=== PATIENT | female | born 1955 | race Caucasian/White ===

== ENCOUNTER 2024-07-26 10:04 | Emergency (ER) | payer MEDICARE, SELFPAY ==
[2024-07-26 10:19] VITALS: BP 145/84; PULSE 76; RESP 16; TEMP 37.2; O2SAT 96
[2024-07-26 10:20] VITALS: BMI 34.2
--- NOTE | 2024-07-26 10:22 | XR_ITS ---
Examination: CT cervical spine without contrast 2-D sagittal reconstructions 2-D coronal reconstructions 3-D reconstructions. Exam date and time:July 26, 2024 1049 hours INDICATIONS: Patient fell this morning with injury to the neck, neck pain CTDI:vol (mGy) 8.74 DLP: (mGycm) 199 Technique: Multiple 2 mm axial sections of the cervical spine have been obtained. The coronal and sagittal reconstructions have been obtained. 3-D reconstructions have been obtained. Low dose protocols were performed. One or more of the following dose reduction techniques were used; automated exposure control, adjustment of the mA and/or KV according to patient size, use of iterative reconstruction technique. Findings: Axial sections demonstrate intact base of the skull. C1 exhibit satisfactory relationship to the odontoid. No acute cervical vertebral body fracture seen. Alignment posterior spinous processes satisfactory. Impression: No acute cervical fracture.
--- NOTE | 2024-07-26 10:22 | XR_ITS ---
Examination: Knee, right , 3 views Technique: Knee AP, lateral, oblique 3 views Date and time of exam: July 26, 2024 1111 hours INDICATIONS: Patient fell today with injury to the knee, knee pain. FINDINGS: No fracture or dislocation No foreign body IMPRESSION: No fracture or dislocation
--- NOTE | 2024-07-26 10:22 | XR_ITS ---
Examination: CT lumbar spine, without contrast. 2-D sagittal reconstructions. 2-D coronal reconstructions. 3-D reconstructions. Date and time of exam:July 26, 2024 1053 hours INDICATIONS: Patient fell this morning with injury to the lower back, lower back pain CTDI: vol (mGy):31.9 DLP: (mGycm):973 Technique: Multiple 1.25 mm axial sections of the lumbar spine without contrast have been obtained. 2-D sagittal and coronal reconstructions have been obtained. 3-D reconstructions have been obtained. Low dose protocols were performed. One or more of the following dose reduction techniques were used; automated exposure control, adjustment of the mA and/or KV according to patient size, use of iterative reconstruction technique. Findings: Severe osteopenia Grade 1 retrolisthesis L2 on L3 No lumbar vertebral body compression fracture Advanced disc narrowing L2-L3 Lumbar pedicles laminated transverse and posterior spinous processes intact Visualized sacral segments intact L5-S1 3 mm central lumbar disc bulge IMPRESSION: No acute lumbar fracture Please see the CT thoracic spine report for description mild compression fracture T12 depression superior endplate
--- NOTE | 2024-07-26 10:22 | XR_ITS ---
Examination: CT thoracic spine, without contrast. 2-D sagittal reconstructions. 2-D coronal reconstructions. 3-D reconstructions. Date and time of exam:July 26, 2024 1053 hours INDICATIONS: Patient fell this morning with injury to the upper back, upper back pain CTDI: vol (mGy):24.5 DLP: (mGycm):891 Technique: Multiple 1.25 mm axial sections of the thoracic spine without intravenous contrast have been obtained. 2-D sagittal and coronal reconstructions have been obtained. 3-D reconstructions have been obtained. Low dose protocols were performed. One or more of the following dose reduction techniques were used; automated exposure control, adjustment of the mA and/or KV according to patient size, use of iterative reconstruction technique. Findings: Severe osteopenia Acute mild compression fracture T12, mild depression superior endplate with 2 mm chip fracture off the anterior superior margin of this vertebral body Thoracic pedicles and laminae as well as posterior spinous processes appear intact IMPRESSION: Acute mild compression fracture T12, satisfactory alignment
--- NOTE | 2024-07-26 10:22 | XR_ITS ---
Examination: CT brain head without contrast. 2-D sagittal coronal reconstructions Date and time of exam:July 26, 2024 1049 hours INDICATIONS: Patient fell today with injury to the head, head pain COMPARISON: August 30, 2023 CTDI: vol (mGy):49.4 DLP: (mGycm):1024 Technique: Multiple CT axial sections of the brain have been obtained, 5 mm slice thickness. Contrast has not been administered. 2-D sagittal, coronal reconstructions have been obtained Low dose protocols were performed. One or more of the following dose reduction techniques were used; automated exposure control, adjustment of the mA and/or KV according to patient size, use of iterative reconstruction technique. Findings: No significant ventricular enlargement. Intra-axial or extra-axial hemorrhage density is not seen. No mass effect or midline shift Basal cisterns are not remarkable. Fourth ventricle is midline. Cranial vault intact. Impression: Negative for acute hemorrhage, mass effect or midline shift
--- NOTE | 2024-07-26 10:23 | XR_ITS ---
Examination: PA lateral chest 2 views TECHNIQUE: Upright PA lateral chest 2 views Exam date and time: July 26, 2024 1110 hours INDICATIONS: Patient fell today with injury to the chest and back, chest pain back pain FINDINGS: Mild prominence left ventricle No pneumothorax Prominent osteopenia Clavicles ribs thoracic vertebral bodies appear intact IMPRESSION: No pneumothorax pulmonary contusion or hemothorax
--- NOTE | 2024-07-26 10:51 | PD.EDRME ---
Rapid Medical Screening Exam RME Arrival date/time: 07/26/24 10:04 68-year-old female presents to the emergency department complaints of fall today Chief Complaint: Fall Time Seen by Provider: 07/26/24 10:06 Vital signs: Vital Signs Temperature 99.0 F 07/26/24 10:19 Pulse Rate 76 07/26/24 10:19 Respiratory Rate 16 07/26/24 10:19 Blood Pressure 145/84 H 07/26/24 10:19 Pulse Oximetry (%) 96 07/26/24 10:19 Oxygen Delivery Method Room Air 07/26/24 10:19
[2024-07-26 12:29] LABS: Basophils % (Auto) 1 % (0-2.5); Eosinophils # (Auto) 0.1 Thou/mm3 (0.0-0.5); Eosinophils % (Auto) 1 % (0-10); Hematocrit 41.9 % (36.0-46.0); Hemoglobin 13.9 g/dL (12.0-16.0); Immature Granulocytes % (Auto) 0 % (0-0); Immature Granulocytes Auto 0.02 Thou/mm3 (0.00-0.00); Lymphocytes # (Auto) 2.1 Thou/mm3 (1.0-4.8); Lymphocytes % (Auto) 28 % (10-50); Mean Corpuscular HGB Conc 33.2 g/dl (31.0-37.0); Mean Corpuscular Hemoglobin 31.9 pg (25.0-35.0); Mean Corpuscular Volume 96 fL (80-100); Monocytes # (Auto) 0.5 Thou/mm3 (0.0-0.8); Monocytes % (Auto) 7 % (0-12); Neutrophils # (Auto) 4.9 Thou/mm3 (1.8-7.7); Neutrophils % (Auto) 64 % (37-80); Nucleated Red Blood Cell % 0 /100 WBC (0); Platelet Count 221 Thou/mm3 (140-440); RDW Standard Deviation 47.5 fL (36.4-46.3); Red Blood Count 4.36 Miln/mm3 (4.00-5.20); White Blood Count 7.7 Thou/mm3 (3.6-11.0)
[2024-07-26 12:49] LABS: Alanine Aminotransferase 19 U/L (10-49); Albumin, Serum 4.6 gm/dL (3.4-4.8); Albumin/Globulin Ratio 1.9 (1.2-2.2); Alkaline Phosphatase 69 U/L (46-116); Anion Gap 4 (7-16); Aspartate Amino Transferase 22 U/L (0-34); BUN/Creatinine Ratio 16 Ratio (12-20); Bilirubin,Total 0.6 mg/dL (0.3-1.2); Blood Urea Nitrogen 14 mg/dL (9-23); Calcium 9.5 mg/dL (8.3-10.6); Calcium (Corrected) 9.5 mg/dL (8.5-10.1); Carbon Dioxide 27.8 mMol/L (20.0-31.0); Chloride 106 mMol/L (98-107); Creatinine (Component) 0.9 mg/dL (0.6-1.3); Estimated Creatinine Clearance 74.4 mL/min (>60); Globulin 2.4 gm/dL (2.3-3.5); Glucose 95 mg/dL (74-106); Osmolality,Calculated 276 (275-295); Sodium 138 mMol/L (136-145); Troponin I < 0.020 ng/mL (0.0-0.045); eGFR > 60 See Note
--- NOTE | 2024-07-26 13:18 | EDNOTE_ITS ---
ED Fall Injury RME/HPI General Chief Complaint: Fall Stated Complaint: BACK PAIN, RIGHT LEG PAIN SP FALL Time Seen by Provider: 07/26/24 10:06 Arrival date/time: 07/26/24 10:04 RME / HPI RME / HPI Narrative: 68-year-old female patient with significant history of chronic pain, was brought in by family for evaluation regarding a ground-level fall. Patient is having tripped and fell. Patient is complaining of pain to the right knee, pain to the thoracolumbar area, described as dull ache, severity mild. No LOC no nausea no vomiting no headache. No neck pain. Patient is able to ambulate with a cane. Patient's been taking [place] for pain. Related Data Home Medications ?Medication ?Instructions ?Recorded ?Confirmed levothyroxine 112 mcg tablet 112 mcg PO QDAY 11/23/17 05/09/21 escitalopram oxalate 10 mg tablet 10 mg PO QDAY 05/09/21 05/09/21 ibuprofen 800 mg tablet 800 mg PO TID PRN Pain 05/09/21 05/09/21 lisinopril 20 1 tab PO QDAY 05/09/21 05/09/21 mg-hydrochlorothiazide 12.5 mg tablet Previous Rx's ?Medication ?Instructions ?Recorded ibuprofen 600 mg tablet 600 mg PO TID PRN pain #30 tabs 10/10/22 ciprofloxacin HCl 500 mg tablet 500 mg PO BID #14 tabs 05/19/23 (Cipro) loperamide 2 mg capsule 2 mg PO Q6H PRN loose stool #14 08/30/23 caps hydrocodone 5 mg-acetaminophen 325 1 tab PO Q12H PRN pain #4 tabs 01/18/24 mg tablet tamsulosin 0.4 mg capsule (Flomax) 0.4 mg PO QDAY #30 caps 01/18/24 hydrocodone 5 mg-acetaminophen 325 1 tab PO BID PRN pain #6 tabs 02/21/24 mg tablet ibuprofen 600 mg tablet 600 mg PO Q6H #30 tabs 02/21/24 ibuprofen 600 mg tablet 600 mg PO Q8H PRN fever or pain 06/08/24 #20 tabs Allergies Allergy/AdvReac Type Severity Reaction Status Date / Time Penicillins Allergy Verified 06/08/24 12:03 propoxyphene All[facility] Ver[facility] 06/08[facility]24 [facility] sulfamethox[facility] Allergy Verified 06/08/24 12:03 [From Septra] tetracycline Allergy Verified 06/08/24 12:03 trimethoprim [From Aprra] Allergy Verified 06/08/24 12:03 Review of Systems Review of Systems Narrative Review of Systems: Review of system reviewed and within normal limits except mentioned in HPI ED Exam Narrative Physical exam: VITAL SIGNS: Reviewed. GENERAL APPEARANCE: Alert and interactive, follows commands, no acute distress, HEAD AND FACE: Non-traumatic. ENT: PERRL, pink conjunctivitis, eyelid no trauma, Mucous membrane moist. NECK: Supple, nontender, no nuchal rigidity. RECTAL: Deferred. GENITAL: Deferred. NEUROLOGICAL: Gross motor function intact sensory function intact, Appropriate for age. MUSCULOSKELETAL: Thoracolumbar area tenderness, positive midline tenderness, full range of motion. EXTREMITIES: Right knee pain no deformity no swelling, full range of motion. SKIN: Color pink, dry, no rash, no lacerations, no abrasions, no contusions. LYMPHATICS: Deferred. Course Quality Measures none Orders Category Date Time Status EKG (ED ONLY) *Do not use* NOW Care 07/26/24 10:[address] cervical spine wo con Stat Exams 07/26/24 10:[address] head/brain wo con Stat Exams 07/26/24 10:[address] lumbar spine wo con Stat Exams 07/26/24 10:[address] thoracic spine wo con Stat Exams 07/26/24 10:22 Completed EKG (ED Only) Stat Exams 07/26/24 10:23 Ordered XR chest 2V Stat Exams 07/26/24 10:23 Completed XR knee RT 3V Stat Exams 07/26/24 10:22 Completed CBC Stat Lab 07/26/24 12:07 Completed Comprehensive Metabolic Panel Stat Lab 07/26/24 12:07 Completed Troponin I Stat Lab 07/26/24 12:07 Completed Morphine Inj Med 07/26/24 13:15 Discontinued 4 mg IM X1 ONE Ondansetron Odt [Zofran Odt] Med 07/26/24 13:15 Discontinued 4 mg PO X1 ONE Vital Signs Vital signs: Vital Signs Temperature 99.0 F 07/26/24 10:19 Pulse Rate 76 07/26/24 10:19 Respiratory Rate 16 07/26/24 10:19 Blood Pressure 145/84 H 07/26/24 10:19 Pulse Oximetry (%) 96 07/26/24 10:19 Oxygen Delivery Method Room Air 07/26/24 10:19 Fall MDM Narrative MDM Narrative:: 68-year-old female patient with significant history of chronic pain, was brought in by family for evaluation regarding a ground-level fall. Patient is having tripped and fell. Patient is complaining of pain to the right knee, pain to the thoracolumbar area, described as dull ache, severity mild. No LOC no nausea no vomiting no headache. No neck pain. Patient is able to ambulate with a cane. Patient's been taking [place] for pain. Patient denies any bladder incontinence. Denies any bowel incontinence. Denies any saddle anesthesia. CT scan of the head came back unremarkable CT scan of the neck came back unremarkable CT scan of the lumbar spine came back unremarkable CT scan of the thoracic spine showed mild compression fracture of T12 stable. No retropulsion noted. X-ray of the knee came back unremarkable. Results discussed with the patient. Patient stable for discharge. Patient data External records reviewed:: None Clinical information provided by:: patient Social determinants that could affect healthcare access:: none Patient has the following chronic illnesses:: Chronic pain hypertension hypothyroidism How is presenting disease/condition affected by chronic disease/condition?: exacerbated by Evaluation data The following diagnostics were reviewed and interpreted by me:: lab results and radiology exam(s) Lab and/or radiology exams considered but not ordered:: None Interpretation Summary: CT scan of the head came back unremarkable CT scan of the neck came back unremarkable CT scan of the lumbar spine came back unremarkable CT scan of the thoracic spine showed mild compression fracture of T12 stable. No retropulsion noted. X-ray of the knee came back unremarkable. Results discussed with the patient. Medications / Prescriptions Medications or Prescriptions considered but not ordered:: None Medication administrations:: Medication Administration History Discontinued Medications Morphine Sulfate (Morphine Sulf Inj 10 Mg/Ml Vial) 4 mg IM X1 ONE Stop: 07/26/24 13:16 Ondansetron HCl (Ondansetron Odt 4 Mg Tabrap) 4 mg PO X1 ONE; Protocol Stop: 07/26/24 13:16 Morphine Zofran Consultations Consultation(s) initiated? (list below): No Diagnosis Fall Differential Diagnosis: other (T12 compression fracture, status post fall, knee pain) Most likely diagnosis given after review of the tests above:: T12 compression fracture, status post fall Admission Indicated Admission indicated?: not indicated Admission Request Was there a request for admission?: No Disposition Plan Disposition Plan: Discharge Discharge Attestation Discharge Attestation: The patient and all family members were given an opportunity to ask questions and understood the discharge instructions. Discharge instructions specifically effects, indications for sooner follow up or return to the emergency department, and the expected course of current diagnosis. Patient condition: Stable Discharge Plan Plan Patient Disposition: HOME (Self Care) Disposition Comment: Stable Prescriptions/Referrals Prescriptions/Med Rec: No Action levothyroxine 112 mcg Tablet 112 mcg PO QDAY lisinopril-hydrochlorothiazide 20-12.5 mg tablet 1 tab PO QDAY Patient Comments: take 1 tablet by mouth once daily ibuprofen 800 mg tablet 800 mg PO TID PRN (Reason: Pain) Patient Comments: take 1 tablet by mouth three times a day NEEDED FOR PAIN with food or milk escitalopram oxalate 10 mg tablet 10 mg PO QDAY Patient Comments: take 1 tablet by mouth once daily ibuprofen 600 mg tablet 600 mg PO TID PRN (Reason: pain) Qty: 30 0RF ciprofloxacin HCl [Cipro] 500 mg tablet 500 mg PO BID Qty: 14 0RF loperamide 2 mg capsule 2 mg PO Q6H PRN (Reason: loose stool) Qty: 14 0RF tamsulosin [Flomax] 0.4 mg capsule 0.4 mg PO QDAY Qty: 30 0RF hydrocodone-acetaminophen 5-325 mg tablet 1 tab PO Q12H MDD 2 PRN (Reason: pain) Qty: 4 0RF ibuprofen 600 mg tablet 600 mg PO Q8H PRN (Reason: fever or pain) Qty: 20 0RF hydrocodone-acetaminophen 5-325 mg tablet 1 tab PO BID MDD 10 PRN (Reason: pain) Qty: 6 0RF ibuprofen 600 mg tablet 600 mg PO Q6H Qty: 30 0RF Referrals: Valentina Mercado [Primary Care Provider] - In 1 week Problem List Clinical Impression: Fall, T12 compression fracture Patient/Caregiver Discharge Instructions Education Materials: ED Fracture, Vertebral Compression Additional Instructions: Thank you for the opportunity for serving you today. You are stable for discharged . You are advised to: Follow-up with your PCP in 1 to 2 days and asked for referral to spine surgeon Return to ED for worsening of symptoms Increase oral fluids Continue taking your pain medication You can buy thoracic brace as instructed and wear it as needed Your compression fracture is mild, and stable Print Language: Arabic Stand Alone Forms: Nevae[employer] Award Info., Patient Portal Info Letter PA/CHANNEL MACHINE OPERATOR Supervising Physician PA/CHANNEL MACHINE OPERATOR Supervising Physician: MD Shahnaz
[2024-07-26] MEDS: ONDANSETRON ODT 4 MG TABRAP PO (13:38)
[2024-07-26] MEDS: MORPHINE SULF INJ 10 MG/ML VIAL 4 MG IM (13:39)
[2024-07-26 14:06] VITALS: BP 128/80; PULSE 78; RESP 18; TEMP 36.8; O2SAT 98
== END 2024-07-26 14:07 | disposition home or self-care (01) ==
PROVIDERS: Nurse Practitioner Primary Care; Emergency Provider Emergency Medicine
DX: S22.080A Wedge compression fracture of T11-T12 vertebra, initial encounter for closed fracture (principal); W01.0XXA Fall on same level from slipping, tripping and stumbling without subsequent striking against object, initial encounter
CPT/HCPCS: 36415; 70450; 71046; 72125; 72128; 72131; 73562; 80053; 84484; 85025; 93005; 96372; 99284; J2270; Q0162

== ENCOUNTER 2024-07-29 12:38 | Emergency (ER) | payer MEDICARE, SELFPAY ==
[2024-07-29 13:12] VITALS: BP 170/99; PULSE 60; RESP 17; TEMP 36.6; O2SAT 97; BMI 34.2
--- NOTE | 2024-07-29 13:22 | PD.EDRME ---
Rapid Medical Screening Exam RME Arrival date/time: 07/29/24 12:38 Chief Complaint: Back Pain/Injury Time Seen by Provider: 07/29/24 13:15 Vital signs: Vital Signs Temperature 97.8 F 07/29/24 13:12 Pulse Rate 60 07/29/24 13:12 Respiratory Rate 17 07/29/24 13:12 Blood Pressure 170/99 H 07/29/24 13:12 Pulse Oximetry (%) 97 07/29/24 13:12 Oxygen Delivery Method Room Air 07/29/24 13:12 RME Narrative: Diagnosed with compression fracture s/p fall in ED 3 days ago, c/o persistent back pain. Took half [place] at home without relief.
[2024-07-29] MEDS: MORPHINE SULF INJ 10 MG/ML VIAL 5 MG IM (13:45)
[2024-07-29] MEDS: KETOROLAC INJ 60 MG/2 ML VIAL 30 MG IM (13:46)
--- NOTE | 2024-07-29 14:44 | PD.EDBACK ---
ED Back Injury Pain RME/HPI General Chief Complaint: Back Pain/Injury Stated Complaint: BACK PAIN S/P FALL 4 DAYS AGO, SEEN 4 DAYS AGO Time Seen by Provider: 07/29/24 13:15 Source: patient, RN notes reviewed and old records reviewed Arrival date/time: 07/29/24 12:38 Limitations: no limitations RME / HPI RME / HPI Narrative: 68yof presents to ED for low back pain. Patient was evaluated in ED 3 days ago s/p fall and diagnosed with a compression fracture, c/o persistent back pain. No LE weakness, numbness/tingling or bowel/bladder incontinence reported. Patient took half [place] at home without relief. Related Data Home Medications ?Medication ?Instructions ?Recorded ?Confirmed levothyroxine 112 mcg tablet 112 mcg PO QDAY 11/23/17 05/09/21 escitalopram oxalate 10 mg tablet 10 mg PO QDAY 05/09/21 05/09/21 ibuprofen 800 mg tablet 800 mg PO TID PRN Pain 05/09/21 05/09/21 lisinopril 20 1 tab PO QDAY 05/09/21 05/09/21 mg-hydrochlorothiazide 12.5 mg tablet Previous Rx's ?Medication ?Instructions ?Recorded ibuprofen 600 mg tablet 600 mg PO TID PRN pain #30 tabs 10/10/22 ciprofloxacin HCl 500 mg tablet 500 mg PO BID #14 tabs 05/19/23 (Cipro) loperamide 2 mg capsule 2 mg PO Q6H PRN loose stool #14 08/30/23 caps hydrocodone 5 mg-acetaminophen 325 1 tab PO Q12H PRN pain #4 tabs 01/18/24 mg tablet tamsulosin 0.4 mg capsule (Flomax) 0.4 mg PO QDAY #30 caps 01/18/24 hydrocodone 5 mg-acetaminophen 325 1 tab PO BID PRN pain #6 tabs 02/21/24 mg tablet ibuprofen 600 mg tablet 600 mg PO Q6H #30 tabs 02/21/24 ibuprofen 600 mg tablet 600 mg PO Q8H PRN fever or pain 06/08/24 #20 tabs Allergies Allergy/AdvReac Type Severity Reaction Status Date / Time Penicillins Allergy Severe Hives Verified 07/29/24 12:41 sulfamethoxazole Allergy Severe Anaphylaxis Verified 07/29/24 12:41 [From Septra] tetracycline Allergy Severe Hives Verified 07/29/24 12:41 trimethoprim [From Septra] Allergy Severe Anaphylaxis Verified 07/29/24 12:41 propoxyphene Allergy Unknown Verified 07/29/24 12:41 [From Darvocet-N] Review of Systems Review of Systems Systems Reviewed: All systems reviewed, normal except as documented Gastrointestinal Gastrointestinal: Denies fecal incontinence Genitourinary Genitourinary: Denies urinary incontinence Musculoskeletal Musculoskeletal: Reports back pain, Denies numbness and Denies tingling Neurologic Neurologic: Denies localized weakness, Denies numbness and Denies tingling Past Medical History Past Medical History NEUROLOGIC: Negative Seizures CARDIAC: Positive Cardiac Disorders and Hypertension; Negative Congestive Heart Failure RESPIRATORY: Positive Asthma; Negative Chronic Obstructive Pulmonary Disease (COPD) GENITOURINARY: Negative Renal Disease ENT: Positive Cataracts ENDOCRINE: Positive Endocrine Disorders, Hyperthyroidism and Hypothyroidism; Negative Diabetes Mellitus Type 1 or Diabetes Mellitus Type 2 HEMATOLOGIC: Negative Sickle Cell Disease PSYCHO/SOCIAL: Positive Depression OTHER HISTORY: Negative Blood Transfusions, Blood Transfusion Reaction or Anesthesia Reactions Surgical History SURGICAL: Positive Eye Surgery Social History SMOKING STATUS: Never smoker ED Exam General Limitations: Present no limitations General appearance: Present alert and in no apparent distress Head Head exam: Present atraumatic and normocephalic Eye Eye exam: Present normal appearance, PERRL and EOMI ENT ENT exam: Present normal exam and mucous membranes moist Neck Neck exam: Present normal inspection and full ROM; Absent tenderness Chest Chest inspection: Present normal inspection and symmetric chest wall rise Respiratory Respiratory exam: Present normal lung sounds bilaterally; Absent respiratory distress Cardiovascular Cardiovascular exam: Present regular rate and normal rhythm Abdominal Exam Abdominal exam: Present soft; Absent distention or tenderness Extremities Exam Extremities exam: Present normal inspection and full ROM Back Exam Back exam: Present paraspinal tenderness (lumbar b/l) and vertebral tenderness (distal thoracic, no swelling or stepoffs) Neurological Exam Neurological exam: Present alert, oriented X3 and other (No saddle anesthesia); Absent motor sensory deficit Psychiatric Psychiatric exam: Present normal affect and normal mood Skin Skin exam: Present warm, dry, intact and normal color Course Quality Measures none Orders Category Date Time Status Ketorolac Inj [Toradol Inj] Med 07/29/24 13:24 Discontinued 30 mg IM X1 ONE Morphine Inj Med 07/29/24 13:24 Discontinued 5 mg IM X1 ONE Vital Signs Vital signs: Vital Signs Temperature 97.8 F 07/29/24 13:12 Pulse Rate 60 07/29/24 13:12 Respiratory Rate 17 07/29/24 13:12 Blood Pressure 170/99 H 07/29/24 13:12 Pulse Oximetry (%) 97 07/29/24 13:12 Oxygen Delivery Method Room Air 07/29/24 13:12 Back Pain / Injury MDM Narrative MDM Narrative:: 68yof presents to ED for low back pain. Patient was evaluated in ED 3 days ago s/p fall and diagnosed with a T12 compression fracture, c/o persistent back pain. No LE weakness, numbness/tingling or bowel/bladder incontinence reported. Patient took half [place] at home without relief. Patient reassessed. Pain improved after medications administered. She is neurologically intact. Encouraged close f/u with pcp for further pain mgmt. Stable for dc, RTED precautions given. Patient data External records reviewed:: [facility] previous records (07/26/24 ED visit for fall) Clinical information provided by:: patient Social determinants that could affect healthcare access:: none Patient has the following chronic illnesses:: obesity, HTN How is presenting disease/condition affected by chronic disease/condition?: exacerbated by Evaluation data The following diagnostics were reviewed and interpreted by me:: other (specify) (none) Lab and/or radiology exams considered but not ordered:: lumbar xrays: reviewed imaging from 07/26 ED vsiit Interpretation Summary: na Medications / Prescriptions Medications or Prescriptions considered but not ordered:: none Medication administrations:: Medication Administration History Discontinued Medications Ketorolac Tromethamine (Ketorolac Inj 60 Mg/2 Ml Vial) 30 mg IM X1 ONE Stop: 07/29/24 13:25 Last Admin: 07/29/24 13:46 Dose: 30 mg Documented By: Morphine Sulfate (Morphine Sulf Inj 10 Mg/Ml Vial) 5 mg IM X1 ONE Stop: 07/29/24 13:25 Last Admin: 07/29/24 13:45 Dose: 5 mg Documented By: above medications administered in ED Consultations Consultation(s) initiated? (list below): No Diagnosis Differential diagnosis back pain/injury: lumbar radiculopathy, sciatica, strain of lumbar region and other (fracture, msk pain) Most likely diagnosis given after review of the tests above:: back pain Admission Indicated Admission indicated?: not indicated Admission Request Was there a request for admission?: No Disposition Plan Disposition Plan: Discharge Discharge Attestation Discharge Attestation: The patient and all family members were given an opportunity to ask questions and understood the discharge instructions. Discharge instructions specifically effects, indications for sooner follow up or return to the emergency department, and the expected course of current diagnosis. Patient condition: Stable Discharge Plan Plan Patient Disposition: HOME (Self Care) Patient condition on transfer: Stable Prescriptions/Referrals Prescriptions/Med Rec: No Action levothyroxine 112 mcg Tablet 112 mcg PO QDAY lisinopril-hydrochlorothiazide 20-12.5 mg tablet 1 tab PO QDAY Patient Comments: take 1 tablet by mouth once daily ibuprofen 800 mg tablet 800 mg PO TID PRN (Reason: Pain) Patient Comments: take 1 tablet by mouth three times a day NEEDED FOR PAIN with food or milk escitalopram oxalate 10 mg tablet 10 mg PO QDAY Patient Comments: take 1 tablet by mouth once daily ibuprofen 600 mg tablet 600 mg PO TID PRN (Reason: pain) Qty: 30 0RF ciprofloxacin HCl [Cipro] 500 mg tablet 500 mg PO BID Qty: 14 0RF loperamide 2 mg capsule 2 mg PO Q6H PRN (Reason: loose stool) Qty: 14 0RF tamsulosin [Flomax] 0.4 mg capsule 0.4 mg PO QDAY Qty: 30 0RF hydrocodone-acetaminophen 5-325 mg tablet 1 tab PO Q12H MDD 2 PRN (Reason: pain) Qty: 4 0RF ibuprofen 600 mg tablet 600 mg PO Q8H PRN (Reason: fever or pain) Qty: 20 0RF hydrocodone-acetaminophen 5-325 mg tablet 1 tab PO BID MDD 10 PRN (Reason: pain) Qty: 6 0RF ibuprofen 600 mg tablet 600 mg PO Q6H Qty: 30 0RF Referrals: Alesia Mercado PA-C [Primary Care Provider] - In 1 week Problem List Clinical Impression: T12 compression fracture, Low back pain Patient/Caregiver Discharge Instructions Education Materials: ED Fracture, Vertebral Compression Additional Instructions: Follow-up with your primary care physician or pain management physician within the next 1 to 2 days. Print Language: Faroese Stand Alone Forms: Nevaeh Award Info., Patient Portal Info Letter PA/MARELY Supervising Physician PA/MARELY Supervising Physician: Monica
== END 2024-07-29 14:53 | disposition home or self-care (01) ==
PROVIDERS: Emergency Provider Emergency Medicine; PCP Physician Assistant Medical
DX: S22.029A Unspecified fracture of second thoracic vertebra, initial encounter for closed fracture (principal); M54.50 Low back pain, unspecified; W19.XXXA Unspecified fall, initial encounter
CPT/HCPCS: 96372; 99284; J1885; J2270

== ENCOUNTER → 2025-04-23 | Outpatient (CLI) | payer MEDICARE, SELFPAY ==
--- NOTE | 2025-04-23 09:10 | XR_ITS ---
Exam: MRI knee without contrast, right Date and time of exam: April 23, 2025 0936 hours INDICATIONS: Knee pain one year joint popping and clicking instability Technique: Multiple axial, coronal, and sagittal sections on the knee have been obtained. T2-Weighted sagittal, fat-suppressed images, TR 3,500, TE 62, T2 weighted coronal fat-saturated images, TR 3,500, TE 62 Proton density sagittal sections, TR 1800, TE 31. T-1 weighted coronal images, TR 524, TE 13.0 Findings: Medial meniscus anterior horn intact. Medial meniscus, body meniscocapsular separation.. Posterior horn medial meniscus horizontal linear tear communicating inferior articular surface near the inner margin. Lateral meniscus anterior horn is intact Lateral meniscus, body is intact Posterior horn lateral meniscus is intact Anterior cruciate ligament complete tear. Posterior cruciate ligament appears intact. Knee effusion is moderate. Quadriceps and patellar tendons appear intact. There is no evidence of tendinosis. Inflammatory change or fracture of Hoffa's fat pad is not seen. Medial patellar facet demonstrates moderate thinning. Lateral patellar facet cartilage demonstrates moderate thinning. Trochlear cartilage demonstrates moderate thinning. Marrow signal increased about the medial joint space. Medial collateral ligament appears intact. Illiotibial band and fibular collateral ligament are intact. Biceps femoris tendons appear intact. Medial femoral condylar articular cartilage demonstrates severe thinning. Lateral femoral condylar articular cartilage demonstratesmoderate thinning. Tibial plateau cartilage demonstrates severe medial thinning. Impression: Meniscocapsular separation body the medial meniscus Large horizontal linear tear posterior horn medial meniscus Complete tear anterior cruciate ligament
== END | disposition home or self-care (01) ==
LOC: SMRI 08:53
PROVIDERS: PCP Physician Assistant Medical; Referring Provider Physician Assistant Medical; Visit Provider Physician Assistant Medical
DX: S83.194A Other dislocation of right knee, initial encounter (principal); S83.241A Other tear of medial meniscus, current injury, right knee, initial encounter; S83.511A Sprain of anterior cruciate ligament of right knee, initial encounter; X58.XXXA Exposure to other specified factors, initial encounter
CPT/HCPCS: 73721